=== PATIENT | female | born 1990 | race Two or more races ===

== ENCOUNTER 2021-10-24 13:24 | Emergency (ER) | payer OTHER ==
[~2021-10-24] VITALS: Ht 160 cm; Wt 94.8 kg
[~2021-10-24 13:24] MED LIST: PRENATAL CAPLE1 EACH PO
[2021-10-24] MEDS ORDERED: OMEPRAZOLE20 MG (13:30)
[2021-10-24] MEDS ORDERED: PRENA1 TRUE CO1 EACH (13:31)
[2021-10-24] MEDS ORDERED: ECOTRIN81 MG (13:31)
== END 2021-10-24 15:11 | disposition home or self-care (01) ==
LOC: ER 13:24
DX: O46.92 Antepartum hemorrhage, unspecified, second trimester (principal); Z3A.17 17 weeks gestation of pregnancy

== ENCOUNTER 2022-03-25 11:05 | Inpatient (IN) | payer OTHER ==
[~2022-03-25] VITALS: Ht 152.4 cm; Wt 104.3 kg
[~2022-03-25 11:05] MED LIST changes: +ECOTRIN81 MG; +OMEPRAZOLE20 MG; +PRENA1 TRUE CO1 EACH
== END 2022-03-28 10:09 | disposition home or self-care (01) | DRG 788 ==
LOC: LDR 11:05 → OB/GYN 11:05 → LDR 18:02 → OB/GYN 18:47 → LDR 19:09 → OB/GYN 03-26 15:05
PROVIDERS: ADMIT Obstetrics & Gynecology; ATTEND Obstetrics & Gynecology
PROC: 4A1HXCZ Monitoring of Products of Conception, Cardiac Rate, External Approach (ICD-10-PCS; 2022-03-25)
PROC: 10D00Z1 Extraction of Products of Conception, Low, Open Approach (ICD-10-PCS; principal; 2022-03-25 15:00)
DX: O14.14 Severe pre-eclampsia complicating childbirth (principal); O60.14X0 Preterm labor third trimester with preterm delivery third trimester, not applicable or unspecified; Z3A.35 35 weeks gestation of pregnancy; Z37.0 Single live birth

== ENCOUNTER 2024-03-09 07:30 | Emergency (ER) | payer OTHER ==
[~2024-03-09] VITALS: Ht 160 cm; Wt 99.8 kg
[~2024-03-09 07:30] MED LIST changes: +OMEPRAZOLE-BIC1 EAC1; +PEPCID AC20 MG
[2024-03-09] MEDS ORDERED: PRENATAL + DHA1 EAC1 (07:46)
[2024-03-09 08:49] LABS: HEMATOCRIT 38.9 % (36.0-45.00); HEMOGLOBIN 13.5 g/dL (12.0-15.00); MEAN CELL VOLUME 87.9 fL (80.00-100.00); MEAN CORPUSCULAR HEMOGLOBIN 30.6 pg (27.00-32.0); MEAN CORPUSCULAR HGB CONC 34.8 g/dl (32.0-36.0); PLATELET COUNT 376 K/uL (150-450); RED BLOOD COUNT 4.43 M/uL (4.00-6.00); RED CELL DISTRIBUTION WIDTH 13.7 % (11.5-14.5)
== END 2024-03-09 15:19 | disposition home or self-care (01) ==
LOC: ER 07:31
PROVIDERS: Emergency Medicine
DX: O20.8 Other hemorrhage in early pregnancy (principal); Z3A.09 9 weeks gestation of pregnancy; Z91.040 Latex allergy status; Z91.013 Allergy to seafood

== ENCOUNTER 2024-03-19 07:37 | Emergency (ER) | payer OTHER ==
[~2024-03-19] VITALS: Ht 160 cm; Wt 99.8 kg
[~2024-03-19 07:37] MED LIST changes: +PRENATAL + DHA1 EAC1
[2024-03-19 09:07] LABS: HEMATOCRIT 36.8 % (36.0-45.00); MEAN CELL VOLUME 87.5 fL (80.00-100.00); MEAN CORPUSCULAR HEMOGLOBIN 30.8 pg (27.00-32.0); MEAN CORPUSCULAR HGB CONC 35.2 g/dl (32.0-36.0); PLATELET COUNT 382 K/uL (150-450); RED BLOOD COUNT 4.21 M/uL (4.00-6.00); RED CELL DISTRIBUTION WIDTH 13.6 % (11.5-14.5)
[2024-03-19 09:51] LABS: PH,URINE 6.5 (5.0-8.0); URINE APPEARANCE Clear; URINE BILIRRUBIN Negative (NEGATIVE); URINE BLOOD Negative; URINE COLOR Yellow; URINE GLUCOSE Negative (NEGATIVE); URINE KETONE Negative (NEGATIVE); URINE LEUKOCYTE Negative; URINE NITRATE Negative; URINE PROTEIN Negative (NEGATIVE)
[2024-03-19 09:55] LABS: URINE BACTERIA 1733.5 uL (0.0-1933); URINE EPITHELIAL CELLS 8.9 uL (0.0-38.8); URINE RBC 17.7 uL (0.0-20.8); URINE WBC 29.1 uL (0.0-23.2)
[2024-03-19 10:20] LABS: URINE CAST 0.15 uL (0.0-1.40)
[2024-03-19] MEDS ORDERED: CEFAZOLIN SODIUM 1,000 MG VIAL IV SCH (11:15)
== END 2024-03-19 11:55 | disposition home or self-care (01) ==
LOC: ER 07:38
PROVIDERS: Emergency Medicine
DX: O20.8 Other hemorrhage in early pregnancy (principal); Z91.040 Latex allergy status; Z91.013 Allergy to seafood; Z3A.10 10 weeks gestation of pregnancy

== ENCOUNTER 2024-03-20 06:43 | Emergency (ER) | payer OTHER ==
[~2024-03-20] VITALS: Ht 160 cm; Wt 99.8 kg
[2024-03-20] MEDS ORDERED: RINGERS SOLUTION,LACTATED 1,000 ML IV STA (08:25)
[2024-03-20 08:52] LABS: HEMATOCRIT 38.8 % (36.0-45.00); HEMOGLOBIN 13.1 g/dL (12.0-15.00); MEAN CELL VOLUME 88.2 fL (80.00-100.00); MEAN CORPUSCULAR HEMOGLOBIN 29.9 pg (27.00-32.0); MEAN CORPUSCULAR HGB CONC 33.9 g/dl (32.0-36.0); PLATELET COUNT 411 K/uL (150-450); RED BLOOD COUNT 4.39 M/uL (4.00-6.00); RED CELL DISTRIBUTION WIDTH 13.8 % (11.5-14.5)
[2024-03-20 09:39] LABS: CALCIUM 8.8 mg/dL (8.5-10.1); CREATININE SERUM 0.51 mg/dL (0.55-1.02); GFR 138.88; POTASSIUM 3.84 mEq/L (3.5-5.1)
== END 2024-03-20 18:38 | disposition home or self-care (01) ==
LOC: ER 06:45
PROVIDERS: General Practice
DX: O02.1 Missed abortion (principal); Z91.040 Latex allergy status; Z91.013 Allergy to seafood